=== PATIENT | female | born 1955 | race Caucasian/White ===

== ENCOUNTER 2018-03-29 10:17 | Inpatient (IN) ==
[2018-03-29] MEDS ORDERED: Aspirin 81 MG TAB.CHEW PO ONE (10:30)
--- NOTE | 2018-03-29 10:38 | Emergency Department Note ---
Disposition Clinical Impression: NSTEMI (non-ST elevated myocardial infarction) Disposition: Admitted As Inpatient Condition: Good Chest Pain HPI - General Chief Complaint: ED Chest Pain Stated Complaint: chest pain Time Seen by Provider: 03/29/18 10:23 Source: patient, EMS Limitations: no limitations Vital Signs Reviewed: Yes Nursing Notes Reviewed: Yes - History of Present Illness HPI Narrative: 63 year old female presents with chest pain. Pt reported intermittent chest pain on exertion for a month. Pt stated it was uncomfortable sensation in right side back and neck. Associate with shortness of breath and sweating. It usually lasted from 15 to 40 minutes. Pt stated she had chest uncomfortable one hour ago. She took her boyfriend's Nitrostat 2 tabs at once, then she felt dizziness , nausea and sweating. Pt reported resolved chest pain when arriving at ER. History of hypertension but not on any medications. Last time saw PCP was 23 years ago. Pt smokes. Pt complaint: chest pain Onset (ago): minute(s) (40) Duration: intermittent Pain Location: right chest Severity scale (1-10): 0 - Related Data Home Medications Medication Instructions Recorded Confirmed Aspirin 325 mg PO DAILY PRN 03/29/18 03/29/18 Allergies Allergy/AdvReac Type Severity Reaction Status Date / Time lisinopril Allergy Swelling Verified 03/29/18 10:44 of Lip/Tongue/Throat Constitutional: Denies: fever, chills, weakness, weight change Eyes: Denies: eye pain, eye discharge, vision change ENT ED: Denies: ear pain, throat pain, dental pain, hearing loss, epistaxis, congestion, dysphagia Cardiovascular: Reports: chest pain. Denies: palpitations, dyspnea on exertion , edema, syncope Respiratory: Denies: cough, dyspnea, wheezes, hemoptysis, stridor Gastrointestinal: Denies: abdominal pain, nausea, vomiting, diarrhea, constipation, hematemesis, melena, hematochezia Genitourinary: Denies: dysuria, frequency, hematuria, discharge Musculoskeletal: Denies: back pain, neck pain, arthralgia, myalgia Integumentary: Denies: rash, abrasion, lesions Neurological: Denies: headache, weakness, numbness, paresthesias, confusion, abnormal gait, vertigo Psychiatric: Denies: anxiety, depression, suicidal thoughts, homicidal thoughts , auditory hallucinations, visual hallucinations Endocrine: Denies: fatigue Hematological/Lymphatic: Denies: easy bleeding, easy bruising Allergic/Immunologic: Denies: facial swelling, urticaria Chest Pain PMH - Past Medical History Medical history: Reports: hypertension - Social History Smoking Status: Never smoker Alcohol use: Reports: none Drug use: Reports: none Physical Exam - General Limitations: no limitations General appearance: alert, in no apparent distress - Head Head exam: atraumatic, normocephalic, normal inspection - Eye Eye exam: Present: normal appearance, PERRL, EOMI - ENT ENT exam: normal exam, normal oropharynx, mucous membranes moist - Neck Neck exam: Present: normal inspection, full ROM, trachea midline. Absent: tenderness - Chest Chest inspection: Present: normal inspection, symmetric chest wall rise. Absent : tenderness - Respiratory Respiratory exam: Present: normal lung sounds bilaterally. Absent: respiratory distress, wheezes - Cardiovascular Cardiovascular exam: Present: regular rate, normal rhythm, normal heart sounds - Abdominal Exam Abdominal exam: Present: soft, Non-Tender. Absent: tenderness, distention, guarding, rebound, rigidity - Extremities Exam Extremities exam: Present: normal inspection, full ROM. Absent: tenderness, pedal edema - Back Exam Back exam: Present: normal inspection, full ROM. Absent: tenderness - Neurological Exam Neurological exam: Present: alert, oriented X3 - Psychiatric Psychiatric exam: Present: normal affect, normal mood - Skin Skin exam: Present: warm, dry, intact, normal color Course Vital Signs Temperature 98.3 F 03/29/18 10:22 Pulse Rate 68 03/29/18 10:22 Respiratory Rate 14 03/29/18 10:22 Blood Pressure 171/116 03/29/18 10:22 O2 Sat by Pulse Oximetry 96 03/29/18 10:22 Temperature 97.9 F 03/29/18 12:43 Pulse Rate 64 03/29/18 12:43 Respiratory Rate 18 03/29/18 12:43 Blood Pressure 168/84 03/29/18 12:43 O2 Sat by Pulse Oximetry 96 03/29/18 12:43 Oxygen Delivery Oxygen Delivery Room Air Chest Pain - MDM Narrative Medical decision making narrative: 63 year old female smoker with history of hypertension presents with intermittent chest pain on exertion. Pt reported uncomfortable sensation on right side chest and neck, associate with shortness of breath. Today pt had nausea/dizziness and sweating after taking two tabs nitrostate. Pt has negative physical exam except blood pressure elevated. Pt has no recent cardiac workup. Pt is given ASA 324 mg in ER. Labs pending. Pt will be admit to hospital to angina/cardiac workup. 11:09 Troponin 0.05 positive, heparin drip started. page cardiology and hospitalist, pt will be admitted for NStemi. 11:30 am, spoke with hospitalist Dr. Whatley, pt is accepted. - Lab Data Result diagrams: 03/29/18 10:37 03/29/18 10:37 Lab Results 03/29/18 03/29/18 03/29/18 Range/Units 10:37 10:37 10:37 WBC 6.6 (4.3-11.1) K/mcL RBC 4.23 (3.82-4.97) M/mcL Hgb 13.4 (11.5-15.4) g/dL Hct 39.3 (35.3-44.9) % MCV 92.9 (83.0-100.0) fL MCH 31.7 (28.0-33.3) pg MCHC 34.1 (31.6-35.5) g/dL RDW 13.9 (11.5-14.5) % Plt Count 189 (140-400) K/mcL MPV 10.9 (9.4-12.4) fL Immature Gran % 0.5 (0-4) % Seg Neutrophils % 69.1 % Lymphocytes % 23.3 % Monocytes % 4.5 % Eosinophils % 2.3 % Basophils % 0.3 % Neutrophils # 4.6 (1.6-8.9) K/mcL Lymphocytes # 1.5 (0.6-4.6) K/mcL Monocytes # 0.3 (0.0-1.3) K/mcL Eosinophils # 0.2 (0.0-0.6) K/mcL Basophils # 0.0 (0.0-0.2) K/mcL PT 11.4 (9.4-12.1) Seconds INR 1.0 Heparin Anti-Xa, Unfract 0.03 L (0.30-0.70) IU/mL Sodium 138 (136-145) mEq/L Potassium 3.8 (3.5-5.1) mEq/L Chloride 105 (98-107) mEq/L Carbon Dioxide 25 (23-29) mEq/L BUN 12 (8-23) mg/dL Creatinine 0.93 (0.60-1.20) mg/dL Est GFR ( Amer) > 60 (> 60) Est GFR (Non-Af Amer) > 60 (> 60) BUN/Creatinine Ratio 13 (6-26) Glucose 157 H (70-105) mg/dL Calculated Osmolality 289 (280-300) Calcium 9.6 (8.6-10.3) mg/dL Total Bilirubin 0.6 (0.3-1.0) mg/dL AST 22 (13-39) Units/L ALT 27 (7-52) Units/L Alkaline Phosphatase 62 (34-104) Units/L Troponin I 0.05 H* (< 0.04) ng/mL Serum Total Protein 7.1 (6.4-8.9) g/dL Albumin 4.0 (3.5-5.7) g/dL Globulin 3.1 (2.4-3.5) g/dL Albumin/Globulin Ratio 1.3 (1.1-2.2)
[2018-03-29 10:46] LABS: Basophils % 0.3 %; Eosinophils # 0.2 K/mcL (0.0-0.6); Eosinophils % 2.3 %; Hematocrit 39.3 % (35.3-44.9); Hemoglobin 13.4 g/dL (11.5-15.4); Immature Granulocytes % 0.5 % (0-4); Lymphocytes # 1.5 K/mcL (0.6-4.6); Lymphocytes % 23.3 %; Mean Corpuscular HGB Conc 34.1 g/dL (31.6-35.5); Mean Corpuscular Hemoglobin 31.7 pg (28.0-33.3); Mean Corpuscular Volume 92.9 fL (83.0-100.0); Mean Platelet Volume 10.9 fL (9.4-12.4); Monocytes # 0.3 K/mcL (0.0-1.3); Monocytes % 4.5 %; Neutrophils # 4.6 K/mcL (1.6-8.9); Platelet Count 189 K/mcL (140-400); Red Blood Count 4.23 M/mcL (3.82-4.97); Red Cell Distribution Width 13.9 % (11.5-14.5); Segmented Neutrophils % 69.1 %
[2018-03-29 11:09] LABS: Troponin I 0.05 ng/mL (< 0.04)
[2018-03-29 11:10] LABS: Alanine Aminotransferase 27 Units/L (7-52); Albumin/Globulin Ratio 1.3 (1.1-2.2); Alkaline Phosphatase 62 Units/L (34-104); Aspartate Amino Transferase 22 Units/L (13-39); BUN/Creatinine Ratio 13 (6-26); Bilirubin,Total 0.6 mg/dL (0.3-1.0); Blood Urea Nitrogen 12 mg/dL (8-23); Calcium 9.6 mg/dL (8.6-10.3); Carbon Dioxide 25 mEq/L (23-29); Chloride 105 mEq/L (98-107); Globulin 3.1 g/dL (2.4-3.5); Glucose 157 mg/dL (70-105); Osmolality,Calculated 289 (280-300); Potassium 3.8 mEq/L (3.5-5.1); Sodium 138 mEq/L (136-145); Total Protein 7.1 g/dL (6.4-8.9); eGFR For Non-African Americans > 60 (> 60)
[2018-03-29] MEDS ORDERED: *HR* Heparin 5,000 UNIT/ML VIAL IVP ONE (11:10)
[2018-03-29] MEDS ORDERED: *HR* Heparin 5,000 UNIT/ML VIAL IVP PRN ×2 (11:10)
[2018-03-29] MEDS ORDERED: Heparin 25,000 UNIT/500 ML D5W 25,000 UNIT/500 ML BAG IVC SCH (11:15)
--- NOTE | 2018-03-29 11:15 | Emergency Department Note ---
Disposition Clinical Impression: NSTEMI (non-ST elevated myocardial infarction) Disposition: Admitted As Inpatient Condition: Good Forms: ED Satisfaction Letter Chest Pain HPI - General Chief Complaint: ED Chest Pain Stated Complaint: chest pain Time Seen by Provider: 03/29/18 10:23 Source: patient, EMS Limitations: no limitations - History of Present Illness Pain Location: right chest Severity scale (1-10): 0 - Related Data Allergies Allergy/AdvReac Type Severity Reaction Status Date / Time lisinopril Allergy Swelling Verified 03/29/18 10:44 of Lip/Tongue/Throat Constitutional: Denies: fever, chills, weakness, weight change Eyes: Denies: eye pain, eye discharge, vision change ENT ED: Denies: ear pain, throat pain, dental pain, hearing loss, epistaxis, congestion, dysphagia Cardiovascular: Reports: chest pain. Denies: palpitations, dyspnea on exertion , edema, syncope Respiratory: Denies: cough, dyspnea, wheezes, hemoptysis, stridor Gastrointestinal: Denies: abdominal pain, nausea, vomiting, diarrhea, constipation, hematemesis, melena, hematochezia Genitourinary: Denies: dysuria, frequency, hematuria, discharge Musculoskeletal: Denies: back pain, neck pain, arthralgia, myalgia Integumentary: Denies: rash, abrasion, lesions Neurological: Denies: headache, weakness, numbness, paresthesias, confusion, abnormal gait, vertigo Psychiatric: Denies: anxiety, depression, suicidal thoughts, homicidal thoughts , auditory hallucinations, visual hallucinations Endocrine: Denies: fatigue Hematological/Lymphatic: Denies: easy bleeding, easy bruising Allergic/Immunologic: Denies: facial swelling, urticaria Chest Pain PMH - Past Medical History Medical history: Reports: hypertension - Social History Smoking Status: Never smoker Alcohol use: Reports: none Drug use: Reports: none Physical Exam - General Limitations: no limitations General appearance: alert, in no apparent distress Course Vital Signs Temperature 98.3 F 03/29/18 10:22 Pulse Rate 68 03/29/18 10:22 Respiratory Rate 14 03/29/18 10:22 Blood Pressure 171/116 03/29/18 10:22 O2 Sat by Pulse Oximetry 96 03/29/18 10:22 Temperature 98.3 F 03/29/18 10:22 Pulse Rate 68 03/29/18 10:22 Respiratory Rate 14 03/29/18 10:22 Blood Pressure 171/116 03/29/18 10:22 O2 Sat by Pulse Oximetry 96 03/29/18 10:22 Oxygen Delivery Oxygen Delivery Room Air Chest Pain - Lab Data Lab results reviewed: Yes I reviewed the patient's lab results. Result diagrams: 03/29/18 10:37 03/29/18 10:37 Lab Results 03/29/18 03/29/18 Range/Units 10:37 10:37 WBC 6.6 (4.3-11.1) K/mcL RBC 4.23 (3.82-4.97) M/mcL Hgb 13.4 (11.5-15.4) g/dL Hct 39.3 (35.3-44.9) % MCV 92.9 (83.0-100.0) fL MCH 31.7 (28.0-33.3) pg MCHC 34.1 (31.6-35.5) g/dL RDW 13.9 (11.5-14.5) % Plt Count 189 (140-400) K/mcL MPV 10.9 (9.4-12.4) fL Immature Gran % 0.5 (0-4) % Seg Neutrophils % 69.1 % Lymphocytes % 23.3 % Monocytes % 4.5 % Eosinophils % 2.3 % Basophils % 0.3 % Neutrophils # 4.6 (1.6-8.9) K/mcL Lymphocytes # 1.5 (0.6-4.6) K/mcL Monocytes # 0.3 (0.0-1.3) K/mcL Eosinophils # 0.2 (0.0-0.6) K/mcL Basophils # 0.0 (0.0-0.2) K/mcL Sodium 138 (136-145) mEq/L Potassium 3.8 (3.5-5.1) mEq/L Chloride 105 (98-107) mEq/L Carbon Dioxide 25 (23-29) mEq/L BUN 12 (8-23) mg/dL Creatinine 0.93 (0.60-1.20) mg/dL Est GFR ( Amer) > 60 (> 60) Est GFR (Non-Af Amer) > 60 (> 60) BUN/Creatinine Ratio 13 (6-26) Glucose 157 H (70-105) mg/dL Calculated Osmolality 289 (280-300) Calcium 9.6 (8.6-10.3) mg/dL Total Bilirubin 0.6 (0.3-1.0) mg/dL AST 22 (13-39) Units/L ALT 27 (7-52) Units/L Alkaline Phosphatase 62 (34-104) Units/L Troponin I 0.05 H* (< 0.04) ng/mL Serum Total Protein 7.1 (6.4-8.9) g/dL Albumin 4.0 (3.5-5.7) g/dL Globulin 3.1 (2.4-3.5) g/dL Albumin/Globulin Ratio 1.3 (1.1-2.2) - Radiology Data Radiology results reviewed: Yes I reviewed the patient's radiology results. - EKG Data EKG attestation: Yes I reviewed and interpreted this EKG. EKG results narrative: EKG shows sinus rhythm with ventricular rate of 68. DC 186. QRS 97. QTC 405. Patient has no significant ST elevations. She does have depressions throughout lead 1 and aVL. She has T-wave inversion and flattening throughout the anterior precordial leads. Concerning for ACS. Attestation Statement - Attestation Attestation: Patient seen in conjunction with the [facility]. Patient describes exertional angina for the last several months. Took boyfriends nitroglycerin which made her feel like she was going to pass out. EKG shows lead 1 and aVL depression with no signs of elevation. Nonspecific changes throughout the precordial leads. Patient is resting comfortable with this time is chest pain-free. Patient understands the need for admission for further cardiac workup. Troponin did come back positive at 0.05. She received aspirin as well as heparin. The Yaya placed to cardiology as well as the hospitalist for further evaluation and admission.
[2018-03-29 11:33] LABS: Heparin anti-factor XA UFH 0.03 IU/mL (0.30-0.70)
[2018-03-29 11:34] LABS: Prothrombin Time 11.4 Seconds (9.4-12.1)
--- NOTE | 2018-03-29 11:49 | Internal Med History&Physical ---
Date of Encounter: 03/29/18 Time of Encounter: 11:43 Internal Medicine - H&P: HPI Chief complaint: chest pain Admitted From: Emergency Dept Plans for Post Hospital Care: Home History of present illness: Ms. Carrasquillo is a 63 year old female Patient with cardiac risk factors of hypertension, smoking history, obesity , high cholesterol and family history of CAD father had a CABG mother also has history of CABG. patient presented emergency room with a chest pain she says she had intermittent chest pain mostly with exertion describes as pressure tightness going up to her right shoulder and neck associated with sob and sweats ..Had some chest pain today she took 2 Nitrostat at once and became dizzy and then came to the emergency room . chest pain is now resolved EKG is abnormal showing lateral wall ischemiav troponin 0.05 Past Med Surg Social Fam HX - Past Medical History Medical history: hypertension - Social History Smoking Status: Never smoker Smokeless Tobacco Status: No Alcohol use: none Drug use: none Internal Medicine - H&P: Meds 3 Allergy/AdvReac Type Severity Reaction Status Date / Time lisinopril Allergy Swelling Verified 03/29/18 10:44 of Lip/Tongue/Throat All Systems PM: A 10-system review of systems was performed and is negative for pertinent findings except as documented above in the HPI. - Constitutional Vitals: Temp Pulse Resp BP Pulse Ox 98.3 F 68 14 171/116 96 03/29/18 10:22 03/29/18 10:22 03/29/18 10:22 03/29/18 10:22 03/29/18 10:22 - Head Head exam: Present: atraumatic, normocephalic - Eye Eye exam: Present: PERRL, conjuntiva pink, sclera anicteric Pupils: Present: PERRL - Neck Neck exam general surgery: Present: supple, trachea midline. Absent: lymphadenopathy - Respiratory Respiratory exam: Present: CTAB. Absent: accessory muscle use, rales, rhonchi, wheezes - Cardiovascular Cardiovascular exam: Present: RRR, +S1, +S2. Absent: diastolic murmur, gallop, rubs, systolic murmur - GI/Abdominal GI/Abdominal exam: Present: normal bowel sounds, soft, no peritoneal signs. Absent: distended, tenderness - Extremities Exam Extremities exam: Present: warm, radial pulses palpable and symmetrical. Absent : calf tenderness, cyanotic, pedal edema - Neurological Exam Neurological exam: Present: CN II-XII intact, oriented X3, no focal deficits. Absent: pronater drift, facial droop, speech deficit - Skin Skin exam: Present: dry, intact Internal Med - H&P Results - Labs CBC & Chem 7: 03/29/18 10:37 03/29/18 10:37 Labs: Short CBC 03/29/18 Range/Units 10:37 WBC 6.6 (4.3-11.1) K/mcL Hgb 13.4 (11.5-15.4) g/dL Hct 39.3 (35.3-44.9) % Plt Count 189 (140-400) K/mcL Neutrophils # 4.6 (1.6-8.9) K/mcL BMP 03/29/18 10:37 Sodium 138 Potassium 3.8 Chloride 105 Carbon Dioxide 25 BUN 12 Creatinine 0.93 Glucose 157 H Calcium 9.6 Cardiac Enzymes 03/29/18 Range/Units 10:37 Troponin I 0.05 H* (< 0.04) ng/mL Liver Function 03/29/18 Range/Units 10:37 Total Bilirubin 0.6 (0.3-1.0) mg/dL AST 22 (13-39) Units/L ALT 27 (7-52) Units/L Alkaline Phosphatase 62 (34-104) Units/L Albumin 4.0 (3.5-5.7) g/dL - Impressions ITS Impressions Chest X-Ray 03/29/18 10:30 IMPRESSION: No acute process. D/ / Hernan Veliz MD / Hernan Veliz MD Interpreting Provider: Hernan Veliz MD - Assessment and plan (1) HTN (hypertension) Current Visit: Yes Status: Chronic Assessment and plan: Blood pressure uncontrolled she is not on blood pressure medicine was started on beta wayne and Norvasc Qualifiers: Hypertension type: essential hypertension Qualified Code(s): I10 - Essential (primary) hypertension (2) Morbid obesity Current Visit: Yes Status: Chronic (3) Hyperlipidemia Current Visit: Yes Status: Chronic Assessment and plan: Recheck in a.m. Qualifiers: Hyperlipidemia type: pure hypercholesterolemia Qualified Code(s): E78.00 - Pure hypercholesterolemia, unspecified; E78.0 - Pure hypercholesterolemia (4) Smoking Current Visit: Yes Status: Chronic Assessment and plan: Encouraged to stop smoking (5) Abnormal EKG Current Visit: Yes Status: Acute Assessment and plan: Lateral wall ischemia (6) NSTEMI (non-ST elevated myocardial infarction) Current Visit: Yes Status: Acute Assessment and plan: Chest pain typical of cardiac chest pain with positive troponin cardiology has been contacted and patient started on heparin drip - Time Spent With Patient Total time spent is greater than 50% in coordination of care (as documented) at patient's floor/unit and/or counseling patient:
[2018-03-29] MEDS ORDERED: Acetaminophen 325 MG TABLET PO PRN (11:52)
[2018-03-29] MEDS ORDERED: Naloxone 0.4 MG/ML INJ IVP PRN (11:52)
[2018-03-29] MEDS ORDERED: Aspirin 325 MG TABLET PO PRN (11:57)
[2018-03-29] MEDS ORDERED: 0.9 % Sodium Chloride 1,000 ML IVC SCH (12:00)
--- NOTE | 2018-03-29 12:20 | Cardiology Consult Note ---
Date of Encounter: 03/29/18 Time of Encounter: 12:00 Assessment and Plan (1) NSTEMI (non-ST elevated myocardial infarction) Current Visit: Yes Status: Acute Per Cardiology: Initial troponin 0.05. ECG with findings consistent with LVH and has flipped T waves I, aVL, V1-V2. Risk factors: include nicotine abuse, obesity, hypertension, positive family history. Patient reviewed and discussed with Dr. Philip and Dr. Holder, plan for [place] later today. Echo pending. On aspirin, beta wayne, heparin drip. We will add statin. Cardiac rehabilitation consult placed. All questions answered. Further recommendations after echo and catheterization. (2) Smoking Current Visit: Yes Status: Chronic Per Cardiology: Has smoked about a pack per day for 25 years. Smoking cessation highly encouraged-- 3-5 minutes of education provided. Discussion w patient/family: The assessment and plan as outlined above was discussed with the patient and/or family members who expressed understanding and agreement. All questions were answered. Thank you for involving us in the care of your patient. Please call with any questions. History of Present Illness Consult date: 03/29/18 Consult reason: CP, Elevated Trop Chief complaint: CP History of present illness: Ms. Carrasquillo is a 63 year old female with relevant past medical history of untreated hypertension with medical noncompliance, obesity, nicotine abuse. Reports family history of mother with CAD with CABG in her 70s and father with ND/CAD with CABG in his 60s. She denies any past ischemic evaluation. Reports has not seen a physician in the past 20 years. Cardiac consult for chest pain symptoms and mild troponin elevation. Seen today in the ER currently chest pain-free. She reports over the past 2 months intermittent midsternal to right sided chest pressure/discomfort with exertional activities with radiation down her right scapular region and relieved with rest. She does report some mild increase in fatigue over the past few months as well. She reports today symptoms did not improve and she took her 's nitroglycerin pill which "made her sick". She reports positive nausea and vomiting and diaphoresis. She denies any active bleeding or blood loss. Denies any palpitations, dizziness, syncope, falls. Smoked about a half pack per day for the past 25 years. Past Med Surg Social Fam HX - Past Medical History Attestation: Yes The following information was validated with the patient. Source: patient, old records reviewed, obtained from family Medical history: hypertension - Social History Smoking Status: Never smoker Smokeless Tobacco Status: No Alcohol use: none Drug use: none Medications and Allergies Aspirin 325 mg PO DAILY PRN 03/29/18 [History] 3 Allergy/AdvReac Type Severity Reaction Status Date / Time lisinopril Allergy Swelling Verified 03/29/18 10:44 of Lip/Tongue/Throat All Systems Review: The remainder of the systems were reviewed and are negative - Constitutional Constitutional: fatigue - Cardiovascular Cardiovascular: as per HPI, chest pain with exertion, radiating jaw, neck or arm pain Physical Examination Vital Signs, Last 4 Hours Pulse Resp BP 03/29/18 11:53 71 18 161/91 General: Conversant, No Apparent Distress HEENT: Atraumatic, Normocephaly, Mucus Membranes Moist Neck: No JVD, Normal carotid pulses Cardiac: Reg Rate and Rhythm, Normal S1 and S2, No Murmur Lungs: Normal Breath Sounds, No Wheeze, Rales, Rhonchi Neuro: Alert and responsive, No focal deficits noted Abdomen: Soft, Non-Tender Skin: No rashes noted on visualized skin Musculoskeletal: No Chest Wall Tenderness Extremities: No Clubbing, No Cyanosis, No Edema, Normal Pulses Results 03/29/18 10:37 03/29/18 10:37 Laboratory Tests 03/29/18 03/29/18 03/29/18 10:37 10:37 10:37 Hgb 13.4 Hct 39.3 Plt Count 189 INR 1.0 Creatinine 0.93 Est GFR (Non-Af Amer) > 60 AST 22 ALT 27 Troponin I 0.05 H* ITS Impressions Chest X-Ray 03/29/18 10:30 IMPRESSION: No acute process. D/ / Hernan Veliz MD / Hernan Veliz MD Interpreting Provider: Hernan Veliz MD Active Medications Acetaminophen (Tylenol) 650 mg PO Q6HR PRN PRN Reason: Mild Pain/Fever Stop: 09/28/18 11:53 Amlodipine Besylate (Norvasc) 10 mg PO DAILY MAGGIE PRN Reason: Protocol Stop: 09/28/18 09:01 Aspirin (Aspirin) 325 mg PO DAILY PRN PRN Reason: Headache Stop: 09/28/18 11:58 Heparin Sodium (Porcine) (Heparin) 4,000 unit IVP Q6H PRN PRN Reason: SEE COMMENTS Stop: 09/28/18 11:11 Heparin Sodium (Porcine) (Heparin) 2,000 unit IVP Q6H PRN PRN Reason: SEE COMMENTS Stop: 09/28/18 11:11 Heparin Sodium/Dextrose (Heparin 25,000 Unit/500 Ml D5w) 25,000 unit in 500 mls @ 20.003 mls/hr IVC .Q24H MAGGIE; 7.35 UNIT/KG/HR PRN Reason: Protocol Stop: 09/28/18 11:16 Last Admin: 03/29/18 11:44 Dose: 7.35 unit/kg/hr, 20.003 mls/hr Sodium Chloride (0.9 % Sodium Chloride) 1,000 mls @ 75 mls/hr IVC .[id number] MAGGIE Stop: 03/30/18 14:39 Metoprolol Tartrate (Lopressor) 25 mg PO BID MAGGIE Stop: 09/28/18 21:01 Naloxone HCl (Narcan) 0.4 mg IVP Q2MIN PRN PRN Reason: SEE COMMENTS Stop: 09/28/18 11:53 Tramadol HCl (Ultram) 50 mg PO Q6HR PRN PRN Reason: Moderate Pain Stop: 09/28/18 11:53 - Imaging and Cardiology Echo: pending Cardiac cath: pending - EKG Interpretation EKG results cardiology: personally reviewed Consult Discharge Plan - Plan Referrals: NONE,PCP [Primary Care Provider] -
--- NOTE | 2018-03-29 13:41 | Pre-Sedation Evaluation ---
Pre-sedation evaluation - Pre-sedation checklist Date of procedure: 03/29/18 Procedure: [facility] Recent Vitals: Last Vital Signs Temp 97.9 F 03/29/18 12:43 Pulse 64 03/29/18 12:43 Resp 18 03/29/18 12:43 BP 168/84 03/29/18 12:43 Pulse Ox 96 03/29/18 12:43 H&P (including ROS) documented in medical record: Yes Dietary Status: NPO after Midnight Dentition: No loose teeth or bridges, dentures removed ASA Classification *see protocol: CLASS II-Mild systemic disease Cardiac Registry (Cardio Only) - Functional Capacity Functional Capacity: >=4 METS with symptoms - Clincal Frailty Scale Clinical Frailty Scale: Vulnerable
[2018-03-29] MEDS ORDERED: *HR* Heparin 10,000 UNIT/10 ML VIAL ONE (13:45)
[2018-03-29] MEDS ORDERED: 0.9 % Sodium Chloride 1,000 ML ONE ×2 (13:45→13:50)
[2018-03-29] MEDS ORDERED: ISOVUE-370 200 ML INFUS..BTL IV ONE ×2 (13:45→14:43)
[2018-03-29] MEDS ORDERED: Heparin 1,000 UNITS/500 mL 500 ML ONE (13:45)
[2018-03-29] MEDS ORDERED: Nitroglycerin 1,000 MCG/10 ML VIAL IV ONE (13:45)
[2018-03-29] MEDS ORDERED: *HR* Midazolam HCl 2 MG/2 ML VIAL ONE (14:05)
[2018-03-29] MEDS ORDERED: *HR* FentaNYL (PF) 100 MCG/2 ML VIAL ONE (14:05)
[2018-03-29] MEDS ORDERED: Tirofiban 12.5 MG/250ML 12.5 MG/250 ML BAG ONE (14:31)
[2018-03-29] MEDS ORDERED: *HR* Ticagrelor 90 MG TABLET ONE (15:13)
[2018-03-29] MEDS ORDERED: Tirofiban 12.5 MG/250ML 12.5 MG/250 ML BAG IVC SCH (15:30)
--- NOTE | 2018-03-29 15:41 | Invasive Diagnostic Lab Proc ---
Name: Elizabeth Carrasquillo Date of Study: 03/29/2018 Date: 1955 Ht: 66.9in Medical Record#: [id number] Age: 63 Wt: 276.68lb Gender: Female BSA: 2.32 Order #: [id number] BMI: 43.43 Physicians Procedure Physician: Tom Holder MD Referring MD: Referring MD: Staff Name Position Time In Chelsea Gómez RT (R) Scrub 01:46 PM Abdoulaye Mckenna RN Board Worker 01:46 PM Oskar Quiñones RN Monitor 01:46 PM Indications Indication Non-Stemi Procedures Performed Procedure L HRT ARTERY/VENTRICLE ANGIO PRQ CARD THEO STENT W/ANGIO 1 VSL Pre-Procedure Checklist Informed consent is complete signed and on chart. H&P is on chart. ID band is on and ID verified with patient. Patient NPO for procedure The procedure was described for the patient and questions were answered. Blood Pressure: 168/84 ECG is on chart. Rhythm: NSR Plan of Care Patient will tolerate the procedure without complications. Adequate level of comfort will be maintained. Hemodynamics will remain stable Patient will recover from procedure without complications. Respiratory function will be maintained. Cardiac rhythm will remain stable. Patient temperature will be maintained. Patient and/or family have verbalized understanding of the procedure. Patient Education Chief Complaint/Reason for Test: Cardiac Cath Developmental Category: Geriatric (65+ years) Developmentally Appropriate for Age: Yes Learning Barriers: None Education Needs: Procedure Education Method: Verbal Information Taught: Cardiac Cath Educational Evaluation: Able to repeat information Allergies lisinopril Vital Signs Time BP (mmHg) HR (bpm) O2 Sat. RR (bpm) LOC 02:01 PM / % 5 = Fully awake and oriented or at pre-proc level 02:01 PM / % 4 = Oriented but drowsy 02:16 PM / % 4 = Oriented but drowsy 02:31 PM / % 4 = Oriented but drowsy 02:46 PM / % 4 = Oriented but drowsy 02:04 PM 162 / 83 61 100 % 18 02:44 PM 129 / 70 55 100 % 17 02:49 PM 135 / 78 65 100 % 16 02:54 PM 144 / 83 65 100 % 15 02:59 PM 159 / 94 68 100 % 18 03:05 PM 162 / 77 71 99 % 30 03:09 PM 172 / 84 66 100 % 11 03:14 PM 156 / 79 67 99 % 20 03:19 PM 152 / 84 67 99 % Procedural Medications Time Medication Dose Units Method Given By 02:01 PM Oxygen 2 L/min nasal cannula Abdoulaye Mckenna RN 02:06 PM Versed 1 mg Intravenous Abdoulyae Mckenna RN 02:06 PM Fentanyl 50 mcg Intravenous Abdoulyae Mckenna RN 02:19 PM Lidocaine 2% 20 ml Subcutaneous Tom Holder MD 02:23 PM Versed 0.5 mg Intravenous Abdoulaye Mckenna RN 02:23 PM Fentanyl 25 mcg Intravenous Abdoulaye Mckenna RN 02:25 PM Nitroglycerin 100 mcg Intracoronary Elke Holder MD 02:26 PM Nitroglycerin 100 mcg Intracoronary Elke Holder MD 02:35 PM Aggrastat Bolus: 62 ml Intravenous Abdoulaye Mckenna RN 02:35 PM Aggrastat 12.5mg/250ml 22.5 ml Intravenous Abdoulaye Mckenna RN 02:39 PM Heparin 5000 units Intravenous Abdoulaye Mckenna RN 03:11 PM Nitroglycerin 200 mcg Intracoronary Elke Holder MD 03:13 PM Brilinta 180 mg Orally Abdoulaye Mckenna RN Shyanne Score Preprocedure Postprocedure Activity 2- Moves 4 extremities sustained head lift Activity 2- Moves 4 extremities sustained head lift Circulation 2- SBP +/= 20 points of pre-anesthetic level Circulation 2- SBP +/= 20 points of pre-anesthetic level Consciousness 2- Awake and alert oriented x 3 Consciousness 2- Awake and alert oriented x 3 O2 Saturation 2- Able to maintain O2 satruation of 92% on room air O2 Saturation 2- Able to maintain O2 satruation of 92% on room air Respiratory 2- Able to deep breathe and cough well Respiratory 2- Able to deep breathe and cough well Total Score 10 Total Score 10 Contrast Agent: Isovue Diagnostic Contrast: 270 ml Total Contrast: 270 ml Fluoro Dose: 99705 mGy Activated Clotting Time Time Seconds to Clot 02:39 PM 141 Procedure Log Time Note Enter By 01:46 PM Pt arrived to supervisor [facility] 2 at 13:46 cedwards 01:46 PM Chelsea Gómez RT (R) Position: Scrub Time in: 13:46 cedwards 01:46 PM Abdoulaye Mckenna RN Position: Board Worker Time in: 13:46 cedwards 01:47 PM Oskar Quiñones RN Position: Monitor Time in: 13:46 cedwards 01:58 PM Patient charges- Angio tray pack, Navilyst 3mm J, Pulse Oximetry and ACIST tubing and transducer cedwards 01:58 PM Physician arrived 13:58 cedwards 01:58 PM Meet and nicole completed cedwards :58 PM Sign in performed according to hospital policy. cedwards 01:58 PM Procedure start 13:58 cedwards 02:01 PM Time: 14:01 Patient comfortable and pain free: Yes cedwards 02:01 PM Time: 14:01LOC: 5 = Fully awake and oriented or at pre-proc level cedwards 02:01 PM Time: 14:01 Oxygen on at 2 L/min per nasal cannula by Abdoulaye Mckenna RN cedwards 02:02 PM Case Start 02:02 PM CathStat 02:02 PM NIBP STAT measurement started. 02:02 PM Recorded ECG: HR=62 Condition=Condition 1 02:04 PM HR=61 bpm, NQCN=493/83 mmhg, XqW9=736.0 %, Resp=18 B/min, Comment=NSR 02:06 PM Time: 14:06 Versed 1 mg Intravenous Given by Abdoulaye Mckenna RN cedwards 02:06 PM Time: 14:06 Fentanyl 50 mcg Intravenous Given by Abdoulaye Mckenna RN cedwards 02:16 PM Time: 14:01LOC: 4 = Oriented but drowsy cedwards 02:16 PM Time: 14:01 Patient comfortable and pain free: Yes cedwards 02:19 PM Clinical Presentation: Non-STEMI cedwards 02:19 PM Time out performed according to hospital policy cedwards 02:19 PM Time: 14:19 20 ml Lidocaine 2% to right groin Subcutaneous Given by Tom Holder MD cedwards 02:21 PM Micro-Introducer Kit utilized for sheath placement cedwards 02:21 PM Access obtained by percutaneous puncture. 6Fr 10cm Terumo Rawlings sheath placed in right Femoral artery. [id number] cedwards 02:22 PM 5Fr FR 4 catheter inserted over the wire [facility] cedwards 02:23 PM Time: 14:23 Versed 0.5 mg Intravenous Given by Abdoulaye Mckenna RN cedwards 02:23 PM Time: 14:23 Fentanyl 25 mcg Intravenous Given by Abdoulaye Mckenna RN cedwards 02:25 PM Time: 14:25 Nitroglycerin 100 mcg Intracoronary Given by Elke Holder MD cedwards 02:25 PM RCA angiography performed in multiple views. cedwards 02:25 PM Recorded Pressure: Ao, HR=65, Condition=Condition 1 (Aorta) Ao 113/54/73 02:26 PM Time: 14:26 Nitroglycerin 100 mcg Intracoronary Given by Elke Holder MD cedwards 02:28 PM Catheter removed cedwards 02:28 PM Coronary Dominance: right cedwards 02:28 PM 5Fr FL 4 catheter inserted over the wire [facility] cedwards 02:28 PM LCA angiography performed in multiple views. cedwards 02:29 PM Recorded Pressure: Ao, HR=66, Condition=Condition 1 (Aorta) Ao 107/9/50 02:31 PM Catheter removed cedwards 02:31 PM Time: 14:16 Patient comfortable and pain free: Yes cedwards 02:31 PM Time: 14:16LOC: 4 = Oriented but drowsy cedwards 02:31 PM 5Fr Pigtail catheter inserted over the wire [facility] cedwards 02:31 PM Catheter selectively placed in left ventricle cedwards 02:33 PM Recorded Pressure: LV, HR=64, Condition=Condition 1 (Left Ventricle) LV 121/13/26 02:33 PM Recorded Pressure: LV, HR=66, Condition=Condition 1 (Left Ventricle) LV 128/3/13 02:33 PM Bolus angiogram of left Ventricle complete: 10 ml/sec for a total of 20 mls cedwards 02:34 PM Recorded Pressure: LV, Ao, HR=64, Condition=Condition 1 (Left Ventricle) LV 107/16/17, (Aorta) Ao 111/63/86 02:34 PM Catheter removed cedwards 02:34 PM 6Fr JR 4 Cordis guide catheter was used to cannulate the PCI vessel successfully. reused? No cedwards 02:35 PM Time: 14:35 Aggrastat Bolus: 62 ml Intravenous Given by Abdoulaye Mckenna RN Diggs pump cedwards 02:36 PM Time: 14:35 Aggrastat 12.5mg/250ml 22.5 ml Intravenous Given by Abdoulaye Mckenna RN Diggs pump cedwards 02:36 PM .014 [employer]grath 190cm guide wire across target lesion- successful. reused? No cedwards 02:36 PM Inflation device was opened. cedwards 02:37 PM Lesion found in Proximal RCA. Pre Stenosis: 99 Pre CLINT Flow: 3: Complete and Brisk Flow/Perfusion cedwards 02:38 PM Lesion found in Mid RCA. Pre Stenosis: 99 Pre CLINT Flow: 3: Complete and Brisk Flow/Perfusion cedwards 02:38 PM Coronary Dominance: right cedwards 02:39 PM At 14:39 the ACT was 141 seconds. cedwards 02:39 PM Time: 14:39 Heparin 5000 units Intravenous Given by Abdoulaye Mckenna RN cedwards 02:40 PM 1.5 mm x 15 mm Emerge Monorail balloon across target lesion- successful. reused? No cedwards 02:42 PM Recorded Pressure: Ao, HR=52, Condition=Condition 1 (Aorta) Ao 113/3/58 02:43 PM Vitals capture started with the following parameters, Patient=Adult, Interval=5 min, Initial Qaoauchn=054 mmHg, Deflation Rate=5 mmHg, Cuff placed on Right Arm 02:44 PM HR=55 bpm, XTNO=705/70 mmhg, UvC4=948.0 %, Resp=17 B/min, EtCO2=44 mmHg 02:45 PM Recorded Pressure: Ao, HR=64, Condition=Condition 1 (Aorta) Ao 109/59/81 02:46 PM Balloon inflated @ 10 blanche for 9 seconds cedwards 02:46 PM Time: 14:31LOC: 4 = Oriented but drowsy cedwards 02:46 PM Time: 14:31 Patient comfortable and pain free: Yes cedwards 02:46 PM Balloon inflated @ 10 blanche for 10 seconds cedwards 02:47 PM Balloon inflated @ 10 blanche for 4 seconds cedwards 02:47 PM Balloon catheter removed intact. cedwards 02:48 PM 2.0 mm x 12 mm Emerge Monorail balloon across target lesion- successful. reused? No cedwards 02:49 PM Balloon inflated @ 6 blanche for 9 seconds, Prox RCA cedwards 02:49 PM HR=65 bpm, JBSP=937/78 mmhg, DrH7=640.0 %, Resp=16 B/min 02:49 PM Balloon inflated @ 9 blanche for 11 seconds, Prox RCA cedwards 02:50 PM Balloon inflated @ 9 blanche for 14 seconds, MRCA cedwards 02:50 PM Balloon inflated @ 9 blanche for 7 seconds, MRCA cedwards 02:50 PM Recorded Pressure: Ao, HR=60, Condition=Condition 1 (Aorta) Ao 137/72/100 02:51 PM Balloon catheter removed intact. cedwards 02:53 PM 3.5mm x 16mm Synergy drug-eluting stent across target lesion- successful Lot #[id number] cedwards 02:54 PM Stent deployed @ 9 blanche for 9 seconds cedwards 02:54 PM HR=65 bpm, PFJE=292/83 mmhg, HsC0=805.0 %, Resp=15 B/min, EtCO2=44 mmHg 02:54 PM Stent balloon reinflated @ 14 blanche for 10 seconds cedwards 02:54 PM Stent delivery system removed intact. cedwards 02:55 PM Recorded Pressure: Ao, HR=69, Condition=Condition 1 (Aorta) Ao 148/51/88 02:57 PM 3.5mm x 16mm Synergy drug-eluting stent across target lesion- successful Lot #[id number] cedwards 02:59 PM HR=68 bpm, ZTOU=695/94 mmhg, XoI8=486.0 %, Resp=18 B/min, EtCO2=41 mmHg 03:01 PM Time: 14:46 Patient comfortable and pain free: Yes cedwards 03:01 PM Time: 14:46LOC: 4 = Oriented but drowsy cedwards 03:02 PM Stent deployed @ 9 blanche for 10 seconds cedwards 03:02 PM Stent balloon reinflated @ 16 blanche for 16 seconds cedwards 03:03 PM Stent balloon reinflated @ 11 blanche for 6 seconds cedwards 03:03 PM Recorded Pressure: Ao, HR=74, Condition=Condition 1 (Aorta) Ao 151/82/113 03:04 PM Stent delivery system removed intact. cedwards 03:04 PM Guide wire removed intact. cedwards 03:05 PM Recorded Pressure: Ao, HR=90, Condition=Condition 1 (Aorta) Ao 136/66/98 03:05 PM HR=71 bpm, HUPC=969/77 mmhg, SpO2=99.0 %, Resp=30 B/min 03:09 PM HR=66 bpm, VMVX=189/84 mmhg, FyZ2=363.0 %, Resp=11 B/min 03:10 PM Recorded ECG: HR=72 Condition=Condition 1 03:11 PM Time: 15:11 Nitroglycerin 200 mcg Intracoronary Given by Elke Holder MD cedwards 03:13 PM Guide catheter removed intact. cedwards 03:13 PM Time: 15:13 Brilinta 180 mg Orally Given by Abdoulaye Mckenna RN cedwards 03:14 PM HR=67 bpm, WTOW=814/79 mmhg, SpO2=99.0 %, Resp=20 B/min, EtCO2=32 mmHg 03:15 PM Procedure completed at 15:15 03/29/2018 cedwards 03:15 PM Did you address CLINT flow and Dominance? Yes cedwards 03:19 PM Sign out completed: Radiation Dose 3857.07 mGy, 11009 cGy/cm2 Fluoro Time: 21.5 Isovue 370 - 200ml contrast 270 ml given by Tom Holder MD. Complications: NoneCardiac Rehab Consult needed: YesConfirmed administered medications: Yes cedwards 03:19 PM Isovue 370 - 200ml,2 Bottle(s) used. cedwards 03:19 PM HR=67 bpm, MPCO=685/84 mmhg, SpO2=99.0 % 03:19 PM Arterial sheath pulled, Angio-seal closure device used and was Successful [id number] S/N. cedwards 03:20 PM Estimated Blood Loss: minimal cedwards 03:20 PM Post ECG NSR cedwards 03:20 PM Post Blood Pressure 152/84 cedwards 03:20 PM Information taught Cardiac Cath, PCI, and Angioseal cedwards 03:20 PM Education needs Procedure, Plan of Care, and Disease Process cedwards 03:20 PM Learning barriers :None cedwards 03:20 PM Education Methods Verbal cedwards 03:20 PM Education evaluation Able to repeat information cedwards 03:20 PM Site status No bleeding/hematoma - Rt Groin as reported by Chelsea Gómez RT (R) at 15:20 cedwards 03:20 PM Opsite applied cedwards 03:20 PM Plavix, Effient or Brilinta given Yes cedwards 03:20 PM Delay to floor No cedwards 03:20 PM Family placed in consult room. cedwards 03:21 PM Complications: None cedwards 03:24 PM Report given to 3B RN Pt taken to 3B Room #45. 15:23 cedwards 03:24 PM Patient out of room: 15:24 cedwards 03:24 PM Lesion found in Proximal LAD. Pre Stenosis: 40 Pre CLINT Flow: cedwards 03:25 PM Lesion found in Mid LAD. Pre Stenosis: 50 Pre CLINT Flow: cedwards 03:25 PM Lesion found in Proximal Circumflex. Pre Stenosis: 65 Pre CLINT Flow: cedwards Complications Complication None None Hemodynamics Pressures Site Systolic/A Wave Diastolic/V Wave Mean AO 113 54 73 AO 107 9 50 LV 121 13 26 LV 128 3 13 LV 107 16 17 AO 111 63 86 AO 113 3 58 AO 109 59 81 AO 137 72 100 AO 148 51 88 AO 151 82 113 AO 136 66 98 Post Procedure Information Blood Pressure: 152/84 mmHg Rhythm: NSR Post procedural instructions were given Closure Device Time Device Success/Fail 03/29/2018 3:30:00 PM Angio-Seal VIP Successful Site Checks Time Location Status Staff Sheath In? Note 03:20 PM Rt Groin No bleeding/hematoma Chelsea Gómez RT (R) Pulses Updated by Oskar Quiñones RN on 03/29/2018 3:34:33 PM electronically signed on 03/29/2018 3:35:18 PM with status of Final
--- NOTE | 2018-03-29 16:18 | Electrocardiograph Report ---
[address] [place], [place] [address] Test Date: 2018-03-29 Pat Name: Elizabeth Carrasquillo Department: 104 Room: 3B45 Gender: F Media Librarian: : 1955 Requested By: [id number] Order Number: [id number] Reading MD: Desi Webster Measurements Intervals [place] Rate: 64 P: 22 NM: 160 QRS: 9 QRSD: 94 T: 124 QT: 396 QTc: 405 Interpretive Statements SINUS RHYTHM MINIMAL VOLTAGE CRITERIA FOR LVH, CONSIDER NORMAL VARIANT MODERATE T-WAVE ABNORMALITY, CONSIDER LATERAL ISCHEMIA ARTIFACT Electronically Signed On 03-29-2018 16:16:45 EDT by Desi Webster
[2018-03-29] MEDS: amLODIPine 5 MG TABLET PO SCH (16:35)
[2018-03-29] MEDS: traMADol 50 MG TABLET PO PRN (17:25)
[2018-03-29 18:27] LABS: Bilirubin,Urine Negative (Negative); Blood,Urine Negative (Negative); Clarity,Urine Clear (Clear); Color,Urine Yellow (Yellow); Glucose,Urine (UA) Normal (Normal); Ketones,Urine Negative (Negative); Leukocyte Esterase,Urine Negative (Negative); Nitrite,Urine Negative (Negative); PH,Urine 7.5 pH Units (5.0-8.0); Protein,Urine Trace mg/dL (Neg-Trace); Specific Gravity,Urine > 1.030 (1.010-1.025); Urobilinogen,Urine Normal (Normal)
--- NOTE | 2018-03-29 19:54 | Electrocardiograph Report ---
[facility] Test Date: 2018-03-29 Pat Name: Elizabeth Carrasquillo Department: 104 Room: 3B45 Gender: F Test And Turn Up Technician: YNIA : 1955 Requested By: Jimmie Moeller Order Number: [id number] Reading MD: Sina Roy Measurements Intervals Cross Rate: 68 P: 26 MN: 186 QRS: -1 QRSD: 97 T: 123 QT: 388 QTc: 405 Interpretive Statements SINUS RHYTHM POSSIBLE RIGHT VENTRICULAR CONDUCTION DELAY LEFT VENTRICULAR HYPERTROPHY AND ST-T CHANGE POSSIBLE ANTERIOR MYOCARDIAL INFARCTION, PROBABLY OLD Electronically Signed On 03-29-2018 19:53:05 EDT by Sina Roy
[2018-03-29] MEDS: *HR* Ticagrelor 90 MG TABLET PO SCH (20:11)
[2018-03-30] MEDS: traMADol 50 MG TABLET PO PRN ×3 (02:08→19:58)
[2018-03-30 06:16] LABS: Basophils % 0.2 %; Eosinophils # 0.2 K/mcL (0.0-0.6); Eosinophils % 2.7 %; Hematocrit 36.8 % (35.3-44.9); Immature Granulocytes % 0.4 % (0-4); Lymphocytes % 25.4 %; Mean Corpuscular HGB Conc 32.6 g/dL (31.6-35.5); Mean Corpuscular Hemoglobin 30.4 pg (28.0-33.3); Mean Corpuscular Volume 93.2 fL (83.0-100.0); Mean Platelet Volume 11.5 fL (9.4-12.4); Monocytes # 0.6 K/mcL (0.0-1.3); Monocytes % 7.2 %; Neutrophils # 5.2 K/mcL (1.6-8.9); Platelet Count 205 K/mcL (140-400); Red Blood Count 3.95 M/mcL (3.82-4.97); Red Cell Distribution Width 14.2 % (11.5-14.5); Segmented Neutrophils % 64.1 %
[2018-03-30 06:34] LABS: Alanine Aminotransferase 23 Units/L (7-52); Albumin 3.8 g/dL (3.5-5.7); Albumin/Globulin Ratio 1.5 (1.1-2.2); Alkaline Phosphatase 57 Units/L (34-104); Aspartate Amino Transferase 17 Units/L (13-39); BUN/Creatinine Ratio 14 (6-26); Bilirubin,Total 0.5 mg/dL (0.3-1.0); Blood Urea Nitrogen 11 mg/dL (8-23); Calcium 9.1 mg/dL (8.6-10.3); Carbon Dioxide 22 mEq/L (23-29); Chloride 107 mEq/L (98-107); Cholesterol 204 mg/dL (< 200); Globulin 2.6 g/dL (2.4-3.5); Glucose 122 mg/dL (70-105); HDL Cholesterol 34 mg/dL (40-59); LDL Cholesterol,Calculated 133 mg/dL (0-99); Magnesium 2.1 mg/dL (1.6-2.6); Osmolality,Calculated 287 (280-300); Potassium 3.8 mEq/L (3.5-5.1); Sodium 138 mEq/L (136-145); Total Protein 6.4 g/dL (6.4-8.9); Triglycerides 186 mg/dL (< 150); eGFR For Non-African Americans > 60 (> 60)
[2018-03-30] MEDS: *HR* Ticagrelor 90 MG TABLET PO SCH ×2 (08:46→19:58)
[2018-03-30] MEDS: Aspirin 81 MG TAB.CHEW PO SCH (08:46)
[2018-03-30] MEDS: amLODIPine 5 MG TABLET PO SCH (08:46)
[2018-03-30] MEDS ORDERED: Nitroglycerin 0.4 MG TAB.SUBL SL PRN (10:11)
--- NOTE | 2018-03-30 10:13 | Cardiology Progress Note ---
Date of Encounter: 03/30/18 Time of Encounter: 10:10 Assessment and Plan (1) NSTEMI (non-ST elevated myocardial infarction) Current Visit: Yes Status: Acute Per Cardiology: Troponin 0.05. Status post left heart catheterization: Showed proximal LAD 40% , mid LAD 50%, proximal circumflex 65%, and patient underwent drug-eluting stent to proximal RCA 95% lesion and drug-eluting stent to mid RCA 99% lesion. Currently chest pain-free. Will have ambulate in hallway. Echo pending. On aspirin, Brilinta, statin, beta wayne. We will add sublingual nitroglycerin pills-- instructions on how to utilize when called 911 provided. Post procedure and UT care provided. All questions answered. Follow-up arranged, cardiology will sign off, reconsult as needed. (2) Smoking Current Visit: Yes Status: Chronic Per Cardiology: Has smoked about a pack per day for 25 years. Smoking cessation highly encouraged-- 3-5 minutes of education provided. Discussion w patient/family: The assessment and plan as outlined above was discussed with the patient and/or family members who expressed understanding and agreement. All questions were answered. Thank you for involving us in the care of your patient. Please call with any questions. Subjective Principal diagnosis: NSTEMI Interval history: Patient denies any concerns or complaints overnight other than some mild dizziness. She denies any chest pain. Denies any concerns from her right groin site. Objective Vital Signs, Last 4 Hours Temp Pulse Resp BP Pulse Ox 03/30/18 07:56 97.8 F 64 20 155/79 96 General: Conversant, No Apparent Distress HEENT: Atraumatic, Normocephaly, Mucus Membranes Moist Neck: No JVD, Normal carotid pulses Cardiac: Reg Rate and Rhythm, Normal S1 and S2, No Murmur Lungs: Normal Breath Sounds, No Wheeze, Rales, Rhonchi Neuro: Alert and responsive, No focal deficits noted Abdomen: Soft, Non-Tender Skin: No rashes noted on visualized skin, Other (Right groin site dry and intact , no hematoma, no bleeding, no ecchymosis, right DP and PT pulses 2+ palpable) Musculoskeletal: No Chest Wall Tenderness Extremities: No Clubbing, No Cyanosis, No Edema, Normal Pulses Results 03/30/18 05:00 03/30/18 05:00 Lab Results Laboratory Tests 03/29/18 03/30/18 03/30/18 10:37 05:00 05:00 Hgb 12.0 Hct 36.8 Creatinine 0.81 Est GFR (Non-Af Amer) > 60 Magnesium 2.1 AST 17 ALT 23 Troponin I 0.05 H* LDL Cholesterol, Calc 133 H Impressions Chest X-Ray 03/29/18 10:30 IMPRESSION: No acute process. D/ / Hernan Veliz MD / Hernan Veliz MD Interpreting Provider: Hernan Veliz MD Active Medications Acetaminophen (Tylenol) 650 mg PO Q6HR PRN PRN Reason: Mild Pain/Fever Stop: 09/28/18 11:53 Amlodipine Besylate (Norvasc) 10 mg PO DAILY MAGGIE PRN Reason: Protocol Stop: 09/28/18 09:01 Last Admin: 03/30/18 08:46 Dose: 10 mg Aspirin (Aspirin) 81 mg PO DAILY MAGGIE Stop: 09/29/18 09:01 Last Admin: 03/30/18 08:46 Dose: 81 mg Atorvastatin Calcium (Lipitor) 80 mg PO HS MAGGIE Stop: 09/28/18 21:01 Last Admin: 03/29/18 20:11 Dose: 80 mg Heparin Sodium (Porcine) (Heparin) 4,000 unit IVP Q6H PRN PRN Reason: SEE COMMENTS Stop: 09/28/18 11:11 Heparin Sodium (Porcine) (Heparin) 2,000 unit IVP Q6H PRN PRN Reason: SEE COMMENTS Stop: 09/28/18 11:11 Heparin Sodium/Dextrose (Heparin 25,000 Unit/500 Ml D5w) 25,000 unit in 500 mls @ 20.003 mls/hr IVC .Q24H MAGGIE; 7.35 UNIT/KG/HR PRN Reason: Protocol Stop: 09/28/18 11:16 Last Admin: 03/29/18 11:44 Dose: 7.35 unit/kg/hr, 20.003 mls/hr Sodium Chloride (0.9 % Sodium Chloride) 1,000 mls @ 75 mls/hr IVC .[id number] MAGGIE Stop: 03/30/18 14:39 Last Admin: 03/29/18 16:37 Dose: 75 mls/hr Metoprolol Tartrate (Lopressor) 25 mg PO BID COUNTS INCLUDE 234 BEDS AT THE [facility] Stop: 09/28/18 21:01 Last Admin: 03/30/18 08:46 Dose: 25 mg Naloxone HCl (Narcan) 0.4 mg IVP Q2MIN PRN PRN Reason: SEE COMMENTS Stop: 09/28/18 11:53 Ticagrelor (Brilinta) 90 mg PO BID COUNTS INCLUDE 234 BEDS AT THE [facility] Stop: 09/28/18 21:01 Last Admin: 03/30/18 08:46 Dose: 90 mg Tramadol HCl (Ultram) 50 mg PO Q6HR PRN PRN Reason: Moderate Pain Stop: 09/28/18 11:53 Last Admin: 03/30/18 02:08 Dose: 50 mg - Imaging and Cardiology Echo: pending Cardiac cath: report reviewed Consult Discharge Plan - Plan Referrals: NONE,PCP [Primary Care Provider] -
--- NOTE | 2018-03-30 13:11 | Internal Med Progress Note ---
Hospitalist Progress Note - Encounter Date of Encounter: 03/30/18 Time of Encounter: 13:09 - Subjective Interval History: No chest pain. - Exam Vitals: Temp Pulse Resp BP Pulse Ox 98.0 F 53 18 102/57 96 03/30/18 11:19 03/30/18 11:19 03/30/18 11:19 03/30/18 11:19 03/30/18 11:19 Exam: PHYSICAL EXAMINATION: GENERAL APPEARANCE: The patient is alert, oriented and in no acute distress. HEENT: Head is normocephalic. The sinuses are nontender. Pupils are equal and reactive. The nares are patent. Oropharynx clear without lesions. NECK: Supple without lymphadenopathy. HEART: Regular rate and rhythm. LUNGS: No crackles or wheezes are heard. ABDOMEN: Soft, nontender, nondistended with good bowel sounds heard. Inguinal area is normal. EXTREMITIES: Without cyanosis, clubbing or edema. NEUROLOGICAL: Gross nonfocal. SKIN: Warm and dry without any rash. - Assessment and Plan (1) NSTEMI (non-ST elevated myocardial infarction) Current Visit: Yes Status: Acute Assessment and Plan: Active 3-year-old female with history of hypertension, hyperlipidemia, smoker, and morbid obesity presented with chest pain, she underwent LHC which revealed severe stenosis at the proximal and mid RCA, 2 THEO stents were placed. Patient chest pain has resolved. - Continue current treatment set up by cardiology, including aspirin, Brilinta, metoprolol, statins, and lisinopril. - Plan to discharge patient in the morning. (2) HTN (hypertension) Current Visit: Yes Status: Chronic Assessment and Plan: Pressure controlled at this time, continue medications. (3) Morbid obesity Current Visit: No Status: Chronic Assessment and Plan: Discussed with patient about weight control. (4) Hyperlipidemia Current Visit: Yes Status: Chronic Assessment and Plan: Patient started on high-strength statins. (5) Smoking Current Visit: Yes Status: Chronic Assessment and Plan: Smoking cessation discussed with the patient. - Time Spent with Patient Total time spent is greater than 50% in coordination of care (as documented) at patient's floor/unit and/or counseling patient: Greater than 35 minutes Plan of Care Discussed with: patient Internal Medicine: Result - Labs CBC & Chem 7: 03/30/18 05:00 03/30/18 05:00 Labs: Short CBC 03/30/18 Range/Units 05:00 WBC 8.0 (4.3-11.1) K/mcL Hgb 12.0 (11.5-15.4) g/dL Hct 36.8 (35.3-44.9) % Plt Count 205 (140-400) K/mcL Neutrophils # 5.2 (1.6-8.9) K/mcL BMP 03/30/18 05:00 Sodium 138 Potassium 3.8 Chloride 107 Carbon Dioxide 22 L BUN 11 Creatinine 0.81 Glucose 122 H Calcium 9.1 Liver Function 03/30/18 Range/Units 05:00 Total Bilirubin 0.5 (0.3-1.0) mg/dL AST 17 (13-39) Units/L ALT 23 (7-52) Units/L Alkaline Phosphatase 57 (34-104) Units/L Albumin 3.8 (3.5-5.7) g/dL Urine 03/29/18 Range/Units 18:16 Urine Color Yellow (Yellow) Urine Clarity Clear (Clear) Urine pH 7.5 (5.0-8.0) pH Units Ur Specific [place] > 1.030 H (1.010-1.025) Urine Protein Trace (Neg-Trace) mg/dL Urine Glucose (UA) Normal (Normal) mg/dL - ABG Interpretation ABG results: PT/INR, D-dimer PT 11.4 Seconds (9.4-12.1) 03/29/18 10:37 - Impressions Impressions Echocardiogram 03/30/18 15:23 Impressions: LVEF 60%. The basal inferolateral wall is not well visualized. Other segments demonstrate normal LV wall motion. Mild left ventricular diastolic dysfunction. Normal right ventricular structure and function. Moderate aortic regurgitation. Mild-moderate mitral regurgitation. Mild tricuspid regurgitation. Mild pulmonary hypertension. Aortic root and proximal ascending thoracic aorta not optimally visualized. Left Ventricular Wall Motion: Rest Echo Findings The basal inferior lateral wall was not visualized. All other wall segments showed normal motion. Findings: Study Quality * Technically adequate exam. ECG Findings * Normal sinus rhythm. Left Ventricle * LVEF 60%. * Mild left ventricular diastolic dysfunction. * Normal LV chamber size and wall thickness. Right Ventricle * Normal right ventricular structure and function. Left Atrium * Mildly dilated left atrium. Right Atrium * Normal right atrial size. Aortic Valve * Aortic valve not well visualized. * No aortic stenosis. * Moderate aortic regurgitation. Mitral Valve * Normal mitral valve structure. * No mitral stenosis. * Mild-moderate mitral regurgitation. Tricuspid Valve * Tricuspid valve not well visualized. * Normal tricuspid valve structure. * Mild tricuspid regurgitation. * Estimated RA pressure is 8 mmHg. * Estimated RVSP is 37 mmHg. * Mild pulmonary hypertension. Pulmonic Valve * Pulmonic valve is not well visualized. * No pulmonic stenosis. * No pulmonic regurgitation. Pulmonary Artery * Pulmonary artery not well visualized. Aorta * Aortic root and proximal ascending thoracic aorta not optimally visualized. Pericardium * There is no pericardial effusion present. Interatrial Septum * No evidence of PFO by color Doppler. IVC * The IVC is not dilated. * < 50% respiratory change. Consult Discharge Plan - Plan Referrals: NONE,PCP [Primary Care Provider] - (2) HTN (hypertension) Qualifiers: Hypertension type: essential hypertension Qualified Code(s): I10 - Essential (primary) hypertension (4) Hyperlipidemia Qualifiers: Hyperlipidemia type: pure hypercholesterolemia Qualified Code(s): E78.00 - Pure hypercholesterolemia, unspecified; E78.0 - Pure hypercholesterolemia
[2018-03-30] MEDS: Sennosides 8.6 MG TABLET PO SCH (17:43)
[2018-03-31 05:02] LABS: Basophils % 0.5 %; Eosinophils # 0.2 K/mcL (0.0-0.6); Eosinophils % 2.9 %; Hematocrit 36.9 % (35.3-44.9); Immature Granulocytes % 0.4 % (0-4); Lymphocytes # 2.2 K/mcL (0.6-4.6); Mean Corpuscular HGB Conc 32.5 g/dL (31.6-35.5); Mean Corpuscular Hemoglobin 30.4 pg (28.0-33.3); Mean Corpuscular Volume 93.4 fL (83.0-100.0); Mean Platelet Volume 11.2 fL (9.4-12.4); Monocytes # 0.5 K/mcL (0.0-1.3); Monocytes % 6.9 %; Neutrophils # 4.6 K/mcL (1.6-8.9); Platelet Count 185 K/mcL (140-400); Red Blood Count 3.95 M/mcL (3.82-4.97); Red Cell Distribution Width 14.3 % (11.5-14.5); Segmented Neutrophils % 60.3 %
[2018-03-31 05:20] LABS: BUN/Creatinine Ratio 16 (6-26); Blood Urea Nitrogen 14 mg/dL (8-23); Calcium 9.2 mg/dL (8.6-10.3); Carbon Dioxide 26 mEq/L (23-29); Chloride 106 mEq/L (98-107); Glucose 119 mg/dL (70-105); Osmolality,Calculated 288 (280-300); Sodium 138 mEq/L (136-145); eGFR For Non-African Americans > 60 (> 60)
[2018-03-31 07:39] VITALS: BP 156/77
[2018-03-31] MEDS: amLODIPine 5 MG TABLET PO SCH (07:52)
[2018-03-31] MEDS: Aspirin 81 MG TAB.CHEW PO SCH (07:52)
[2018-03-31] MEDS: *HR* Ticagrelor 90 MG TABLET PO SCH (07:52)
[2018-03-31] MEDS: Sennosides 8.6 MG TABLET PO SCH (07:52)
--- NOTE | 2018-03-31 09:27 | Discharge Summary ---
- NOTES TO OUTPATIENT PROVIDER Notes to Outpatient Provider: f/u with cardiology within 2 weeks,. F/u with PCP within a week. Date of Encounter: 03/31/18 Time of Encounter: 09:25 - Discharge Diagnosis (1) NSTEMI (non-ST elevated myocardial infarction) Priority: Primary Status: Acute Assessment and Plan: Active 3-year-old female with history of hypertension, hyperlipidemia, smoker, and morbid obesity presented with chest pain, she underwent LHC which revealed severe stenosis at the proximal and mid RCA, 2 THEO stents were placed. Patient chest pain has resolved. - Continue current treatment set up by cardiology, including aspirin, Brilinta, metoprolol, statins, and lisinopril. (2) HTN (hypertension) Priority: Secondary Status: Chronic Assessment and Plan: Pressure controlled at this time, continue medications. Qualifiers: Hypertension type: essential hypertension Qualified Code(s): I10 - Essential (primary) hypertension (3) Morbid obesity Priority: Secondary Status: Chronic Assessment and Plan: Discussed with patient about weight control. (4) Hyperlipidemia Priority: Secondary Status: Chronic Assessment and Plan: Patient started on high-strength statins. Qualifiers: Hyperlipidemia type: pure hypercholesterolemia Qualified Code(s): E78.00 - Pure hypercholesterolemia, unspecified; E78.0 - Pure hypercholesterolemia (5) Smoking Priority: Secondary Status: Chronic Assessment and Plan: Smoking cessation discussed with the patient. Hospital course: Ms. Carrasquillo is a 63 year old female with cardiac risk factors of hypertension, smoking history, obesity, high cholesterol and family history of CAD, father had a CABG mother also has history of CABG. patient presented emergency room with a chest pain she says she had intermittent chest pain mostly with exertion describes as pressure tightness going up to her right shoulder and neck associated with sob and sweats. She had some chest pain today she took 2 Nitrostat at once and became dizzy and then came to the emergency room. chest pain is now resolved. EKG is abnormal showing lateral wall ischemiaa, troponin 0.05. Cardiology was consulted urgently, non-STEMI was diagnosed. Patient underwent emergent left heart catheterization, which showed proximal LAD 40%, mid LAD 50%, proximal circumflex 65%, and patient underwent drug- eluting stent to proximal RCA (95% lesion) and drug-eluting stent to mid RCA (99 % lesion). Repeat ECHO showed LVEF 60%, Mild left ventricular diastolic dysfunction. Pt was started on DAPT with asa and Brillinta, BB and ACEI was added. Her chest pain has resolved. Cardiac cath site is free of hematoma or bleeding. Her vital signs has been stable. She will be discharged home today with f/u with PCP and cardiology as scheduled. Discharge discussed with: patient Time spent discussing smoking cessation with patient: more than 10 minutes - Time Spent with Patient Total time spent providing and/or coordinating discharge services: Greater than 30 minutes - Discharge Medications Prescriptions: Nitroglycerin 0.4 mg SL Q5MIN PRN #20 tab.subl PRN Reason: Chest Pain amLODIPine [Norvasc] 10 mg PO DAILY #30 tablet Aspirin 81 mg PO DAILY #30 tab.chew Atorvastatin [Lipitor] 80 mg PO HS #30 tablet Metoprolol [Lopressor] 25 mg PO BID #60 tablet Ticagrelor [Brilinta] 90 mg PO BID #60 tablet Home Medications: Aspirin 81 mg PO DAILY #30 tab.chew 03/31/18 [Rx] Atorvastatin [Lipitor] 80 mg PO HS #30 tablet 03/31/18 [Rx] Metoprolol [Lopressor] 25 mg PO BID #60 tablet 03/31/18 [Rx] Nitroglycerin 0.4 mg SL Q5MIN PRN #20 tab.subl 03/31/18 [Rx] Ticagrelor [Brilinta] 90 mg PO BID #60 tablet 03/31/18 [Rx] amLODIPine [Norvasc] 10 mg PO DAILY #30 tablet 03/31/18 [Rx] Allergies/Adverse Reactions: 3 Allergy/AdvReac Type Severity Reaction Status Date / Time lisinopril Allergy Swelling Verified 03/29/18 10:44 of Lip/Tongue/Throat Date of admission: 03/29/18 15:45 Primary care physician: PCP NONE Anticipated date of discharge: 03/31/18 - Constitutional Vitals: Temp Pulse Resp BP Pulse Ox 97.8 F 62 18 156/77 97 03/31/18 07:32 03/31/18 07:32 03/31/18 07:32 03/31/18 07:32 03/31/18 09:07 General appearance: Present: cooperative, A&O X 3, answers questions appropriately Exam: PHYSICAL EXAMINATION: GENERAL APPEARANCE: The patient is alert, oriented and in no acute distress. HEENT: Head is normocephalic. The sinuses are nontender. Pupils are equal and reactive. The nares are patent. Oropharynx clear without lesions. NECK: Supple without lymphadenopathy. HEART: Regular rate and rhythm. LUNGS: No crackles or wheezes are heard. ABDOMEN: Soft, nontender, nondistended with good bowel sounds heard. Inguinal area is normal. EXTREMITIES: Without cyanosis, clubbing or edema. NEUROLOGICAL: Gross nonfocal. SKIN: Warm and dry without any rash. - Patient Status Disposition: Home, Self-Care Condition: Good Functional capacity at discharge: independent ambulation Overall status at discharge: patient is back to baseline - Discharge Instructions Follow Up With: NONE,PCP [Primary Care Provider] - - Diet and Activity Activity: increase activity as tolerated Diet: low fat, low cholesterol, low salt diet
== END 2018-03-31 10:13 | disposition home or self-care (01) | DRG 247 ==
LOC: EMEROO 10:17 → 3BNU 10:17
PROVIDERS: ADMIT Internal Medicine Cardiovascular Disease; ATTEND Internal Medicine Cardiovascular Disease